=== PATIENT | female | born 1955 | race Caucasian/White ===

== ENCOUNTER → 2016-10-06 | Outpatient (CLI) | payer OTHER ==
[~2016-10-06] MED LIST: CALCIUM + D 6001 TA1 PO; CALCIUM 500 + D1 TAB PO; FISH OIL 1,001000 M1 PO; FISH OIL 1,001000 MG PO; IBUPROFEN; IBUPROFEN PO; MAXZIDE-25 MG T1 TAB; MAXZIDE-25 MG1 UDTAB; PERCOCET5/325 PO; SIMVASTATIN80 MG PO; ZOCOR; ZOCOR80 MG PO
--- NOTE | ~2016-10-06 | MY29 ---
[facility] A Service of [facility] & [facility] RADIOLOGY TEXT RESULTS PATIENT: SHERI CAN LOCATION: [facility] : 55 UNIT #: [id number] AGE: [address]: Talon Begum MD SEX: F ORDER DR: [id number] [facility] [address] [place], [place] [address] [id number] O MR#: [id number] #: [id number] NAME: SEHRI CAN : 1955 SEX: F STUDY DATE/TIME: 10/06/2016 8:37 UNIT: [facility] ROOM: STUDY DESCRIPTION: MY BEBETO SCREENING W/ CAD BILAT Attending Physician: Talon Begum M.D. Referring Physician: Talon Begum M.D. Ordering Physician: Talon Begum M.D. Primary Care Physician: Talon Begum M.D. MEDICAL IMAGING REPORT This report is preliminary unless electronic signature is present EXAM Digital screening mammogram 10/06/2016 [facility]. HISTORY 61-year-old woman. No risk elevation. Prior breast biopsy 1995. Notes indicate no scar visible. Previous images confirm biopsy left breast upper outer quadrant. COMPARISON Mammograms date to 01/18/2006 with annual mammograms through 09/11/2015. An occasional year was skipped. FINDINGS Digital imaging of each breast was completed utilizing screening protocol. Review includes FDA-approved CAD device. Breast parenchyma is predominantly fatty replaced in each breast. Architectural distortion projects upper outer middle third left breast consistent with previous excisional biopsy. This area is confirmed on prior imaging studies. There is no developing mass. There are no suspicious microcalcifications and no interval occurring architectural disturbance. IMPRESSION Stable benign mammogram. Annual screening recommended. Patients over the age of 40 are entered into a reminder system with target due date for the next mammogram. BIRADS: 2 Benign finding. Dictated by... Enmanuel Almeida M.D. THIS IS AN ELECTRONICALLY VERIFIED REPORT [facility] A Service of [facility] & [facility] RADIOLOGY TEXT RESULTS PATIENT: SHERI CAN LOCATION: [facility] #: [id number] : 55 UNIT #: [id number] AGE: [address]: Talon Begum MD SEX: F ORDER DR: Enmanuel Almeida M.D. at 10/06/2016 2:34 PM SAMANTHA/shahriar TD: 10/06/2016 13:50 JOB #: [id number] MEDICAL IMAGING REPORT Page 1 of 1 COPY
== END | disposition home or self-care (01) ==
LOC: CWCC 08:00
DX: Z12.31 Encounter for screening mammogram for malignant neoplasm of breast (principal); Z98.890 Other specified postprocedural states
CPT/HCPCS: G0202